=== PATIENT | female | born 1945 | race Caucasian/White ===

== ENCOUNTER 2019-12-09 15:42 | Emergency (ER) | payer MEDICARE ==
--- OUTSIDE RECORDS SUMMARY | 2019-12-09 18:35 | XMS REPORT | Summary of Care ---
:1945 Author Organization [facility] Address [address] [facility] [place] [address] Care Team Providers Name Role Phone Karthik Mathias MD Primary Care Provider Reason for Referral Refer to Department Only (Routine) Status Reason Specialty Diagnoses / Referred By Referred To Procedures Contact Contact Pending GASTROENTEROLOGY / Diagnoses Special screening for malignant neoplasm of colon History of colonic polyps Cristóbal Roa Review Gastroenterology Renetta Smith NP Gastroenterol [address] [place] [address] [id number] [facility] Phone: [address] [phone] [place], [place] Fax: [phone] Scheduling Instructions BP 118/78 | Pulse 72 | Temp 96.4 F (35.8 C) | Ht 5' 3" (1.6 m) | Wt 101 lb (45.8 kg) | BMI 17.89 kg/m BMI Readings from Last 4 Encounters: 10/11/19 : 17.89 kg/m Controlled Substance Medications: zolpidem Anticoagulant Medications: Psychiatric/Antianxiety Medications: Antiretroviral Medications: Reason for Visit Reason Comments Advice Only New pt. referred by her PCP for consult for 5-year colonoscopy. Encounter Details Date Type Department Care Team Description 10/11/2019 Office Visit Cristóbal Roa Special screening for malignant neoplasm of colon (Primary Dx); Gastroenterology/Hepa Renetta Smith NP History of colonic polyps tology [address] [place] [address] [place] [address] Allergies Active Allergy Reactions Severity Noted Date Comments Cat Other 03/22/2008 asthma No Known Allergies 10/10/2019 documented as of this encounter (statuses as of 10/11/2019) Medications Medication Sig Dispensed Refills Start End Date Status Date albuterol Take 2 Puff by 0 Active (PROVENTIL,VENTOLIN) inhalation 90 mcg/act FOUR TIMES Inhalation Aero Soln DAILY NEEDED zolpidem (AMBIEN) 10 Take 5-10 mg 0 Active MG Oral Tab by mouth EVERY BEDTIME NEEDED SUMATRIPTAN Take by mouth 0 Active SUCCINATE (IMITREX) DAILY 100 MG Oral Tab NEEDED Cholecalciferol 25 Take by 0 Active MCG (1000 UT) Oral mouth. Chew Tab clobetasol by Topical 0 Active (TEMOVATE) 0.05 % route TWICE Apply externally DAILY. Cream Ibuprofen 200 MG Take by 0 Active Oral Cap mouth. Magnesium 250 MG Take by 0 Active Oral Tab mouth. simethicone Take 1 Tab by 2 Tab 0 Active (GENASYME, MYLICON) mouth 0 80 MG Oral Chew Tab DIRECTED. triamcinolone Take 3 Puff by 0 10/11/19 Discontinued (AZMACORT) 75 inhalation 20 (Error) MCG/ACT Inhalation TWICE DAILY. Aero Soln ACTONEL 35 MG Oral Take 35 mg by 0 10/11/19 Discontinued Tab mouth EVERY 7 20 (Error) DAYS. VITAMIN K PO Take by 0 10/11/19 Discontinued mouth. 20 (Error) amitriptyline Take 10 mg by 0 10/11/19 Discontinued (ELAVIL, ENDEP) 10 mouth EVERY 20 (Error) MG Oral Tab BEDTIME. albuterol HFA Take 2 Puffs 0 10/11/19 Discontinued (PROAIR HFA) 108 (90 by inhalation. 20 (Error) Base) MCG/ACT Inhalation Aero Soln aspirin 325 MG Oral Take 325 mg by 0 10/11/19 Discontinued Tab mouth DAILY. 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 Insomnia 10/10/2019 Pemphigoid 10/10/2019 Osteoporosis, unspecified 08/30/2008 History of hepatitis C virus infection 03/22/2008 Melanoma 03/22/2008 Asthma 03/22/2008 documented as of this encounter (statuses as of 10/11/2019) Resolved Problems Problem Noted Date Resolved Date Palpitations 10/10/2019 10/11/2019 documented as of this encounter (statuses as of 10/11/2019) Social History Tobacco Use Types Packs/Day Years Used Date Former Smoker Smokeless Tobacco: Never Used Comments: quit 1972 Alcohol Use Drinks/Week oz/Week Comments No Sex Assigned at Date Recorded Not on file Job Start Date Occupation Industry Not on file Not on file Not on file Travel History Travel Start Travel End No recent travel history available. documented as of this encounter Last Filed Vital Signs Vital Sign Reading Time Taken Comments Blood Pressure 118/78 10/11/2019 10:27 AM EST Pulse 72 10/11/2019 10:27 AM EST Temperature 35.8 10/11/2019 10:27 AM EST C (96.4 F) Respiratory Rate - - Oxygen Saturation - - Inhaled Oxygen Concentration - - Weight 45.8 kg (101 lb) 10/11/2019 10:27 AM EST Height 160 cm (5' 3") 10/11/2019 10:27 AM EST Body Mass Index 17.89 10/11/2019 10:27 AM EST documented in this encounter Patient Instructions Patient InstructionsRenetta Roa NP - 10/11/2019 10:20 AM EST1. schedule colonoscopy here in [place]. Follow up as needed thereafter If you have not already been screened for Hepatitis C we would be happy to do that for you today. Currently we recommend screening for hepatitis C virus (HCV ) infection in persons at high risk for infection, and to adults born between 1945 and 1965. Thank you for choosing the [facility] for your needs today! -Renetta Roa NGinPGin , Please call if you need to cancel or change your appt. time. Thank you for choosing [facility] for your health care needs, and for consulting with [facility] today. You may receive a survey following this visit, or after an upcoming hospital stay. As easy as it is to feel overloaded with surveys, we are required to send them out randomly and they do provide important feedback so that we may serve your needs in the best way. Please do take the few minutes required to complete the survey if you receive one. We get them too, after seeing the doctor, and they only take a few minutes to complete. documented in this encounter Progress Notes Renetta Roa NP - 10/11/2019 10:20 AM EST PATIENT: Tamica Medina : 1945 DATE OF SERVICE: 10/11/2019 REFERRING PRACTITIONER: Self-Referred PRIMARY CARE PROVIDER: Karthik Mathias (Inactive) CHIEF COMPLAINT: Chief Complaint Patient presents with Advice Only New pt. referred by her PCP for consult for 5-year colonoscopy. Subjective HISTORY OF PRESENT ILLNESS: Tamica Medina is a 74-y.o. female who presents for a consultation. She reports the need for a screening colonoscopy. She reports a history of polyps, with last screening 5 years ago. Denies abdominal pain,heartburn, dysphagia, fatigue, nausea, vomiting, melena, hamatemesis, hematochezia, constipation, diarrhea, jaundice, fevers, chills, night sweats, weight loss, easy bruising, chest pain, shortness of breath, dysuria, hematuria, pyuria, joint pains, acholic stools, dark urine or systemic pruritis. The referring provider's recommended test(s) and treatment(s) to date have been reviewed. Past Medical History: Diagnosis Date Asthma Hepatitis C Melanoma (HCC) Past Surgical History: Procedure Laterality Date ADENOIDECTOMY 1961 APPENDECTOMY 1961 [place] BIOPSY OF BREAST, INCISIONAL right SKIN EXCISION FOR GRAFT 1994 left foot r/t melanoma Family History Problem Relation Age of Onset Heart Father Cancer Mother carcinoid tumors Current Outpatient Medications Medication Sig albuterol (PROVENTIL,VENTOLIN) 90 mcg/act Inhalation Aero Soln Take 2 Puff by inhalation FOURTIMES DAILY NEEDED Cholecalciferol 25 MCG (1000 UT) Oral Chew Tab Take by mouth. clobetasol (TEMOVATE) 0.05 % Apply externally Cream by Topical route TWICE DAILY. Ibuprofen 200 MG Oral Cap Take by mouth. Magnesium 250 MG Oral Tab Take by mouth. simethicone (GENASYME, MYLICON) 80 MG Oral Chew Tab Take 1 Tab by mouth DIRECTED. SUMATRIPTAN SUCCINATE (IMITREX) 100 MG Oral Tab Take by mouth DAILY NEEDED zolpidem (AMBIEN) 10 MG Oral Tab Take 5-10 mg by mouth EVERY BEDTIME NEEDED No current facility-administered medications for this visit. Allergies Allergen Reactions Cat Other asthma No Known Allergies Social History Socioeconomic History Marital status: Spouse name: Not on file Number of children: Not on file Years of education: Not on file Highest education level: Not on file Occupational History Not on file Social Needs Financial resource strain: Not on file Food insecurity Worry: Not on file Inability: Not on file Transportation needs Medical: Not on file Non-medical: Not on file Tobacco Use Smoking status: Former Smoker Smokeless tobacco: Never Used Tobacco comment: quit 1972 Substance and Sexual Activity Alcohol use: No Drug use: No Sexual activity: Yes Partners: Male Lifestyle Physical activity Days per week: Not on file Minutes per session: Not on file Stress: Not on file Relationships Social connections Talks on phone: Not on file Gets together: Not on file Attends lutheran service: Not on file Active member of club or organization: Not on file Attends meetings of clubs or organizations: Not on file Relationship status: Not on file Intimate partner violence Fear of current or ex partner: Not on file Emotionally abused: Not on file Physically abused: Not on file Forced sexual activity: Not on file Other Topics Concern Back Care Not Asked Bike Helmet Not Asked Blood Transfusions Not Asked Caffeine Concern Not Asked Exercise Yes Hobby Hazards Not Asked International Travel Yes Service Not Asked Occupational Exposure Not Asked Seat Belt Yes Self-Exams No Sleep Concern Not Asked Special Diet Not Asked Stress Concern Not Asked Weight Concern Not Asked Social History Narrative Not on file REVIEW OF SYSTEMS: All remaining review of systems was negative except for as noted in the history of present illness/subjective. Objective PHYSICAL EXAMINATION: VITALS: BP 118/78 | Pulse 72 | Temp 96.4 F (35.8 C) | Ht 5' 3" (1.6 m) | Wt 101 lb (45.8 kg) | BMI 17.89 kg/m Body mass index is 17.89 kg/m . GENERAL: alert, oriented, no acute distress. HEENT: No scleral icterus, MMM Psych: Affect normal Neck: no lymphadenopathy LUNGS: clear to auscultation bilaterally. HEART: regular rhythm, no murmurs, no gallops, no rubs. ABDOMEN: general exam: soft, non-tender, non-distended, without masses or organomegaly, normal active bowel sounds, Guzman's sign negative. Extrmities: no edema Skin: clear Neuro: gait normal, a&o x 3 RECTAL: exam deferred. IMPRESSION: ICD-9-CM ICD-10-CM 1. Special screening for malignant neoplasm of colon V76.51 Z12.11 REFER TO GI COLONOSCOPY 2. History of colonic polyps V12.72 Z86.010 REFER TO GI COLONOSCOPY Plan PLAN: Patient Instructions 1. schedule colonoscopy here in [place] 2. Follow up as needed thereafter If you have not already been screened for Hepatitis C we would be happy to do that for you today. Currently we recommend screening for hepatitis C virus (HCV ) infection in persons at high risk for infection, and to adults born between 1945 and 1965. Thank you for choosing the [facility] for your needs today! -Renetta Roa N.P. , Please call if you need to cancel or change your appt. time. Thank you for choosing [facility] for your health care needs, and for consulting with [facility] today. You may receive a survey following this visit, or after an upcoming hospital stay. As easy as it is to feel overloaded with surveys, we are required to send them out randomly and they do provide important feedback so that we may serve your needs in the best way. Please do take the few minutes required to complete the survey if you receive one. We get them too, after seeing the doctor, and they only take a few minutes to complete. Author: Renetta Roa NP 10/11/2019 10:52 documented in this encounter Plan of Treatment Date Type Specialty Care Team Description 10/16/2019 GI Procedure Gastroenterology Lisa Gordon MD [address] [place] [address] [phone] Name Type Priority Associated Diagnoses Order Schedule COLONOSCOPY Diagnostic/Surgical Routine Special screening for Ordered: Procedures malignant neoplasm of colon History of colonic polyps Name Type Priority Associated Diagnoses Order Schedule REFER TO GI Referral Routine Special screening for Expected: 10/11/2019, malignant neoplasm of colon Expires: 10/11/2020 History of colonic polyps Health Maintenance Due Date Last Done Comments MEDICARE ANNUAL WELLNESS VISIT 1945 DTaP/Tdap/Td Vaccines (1 - Tdap) 1958 DEPRESSION SCREENING 1959 HIV SCREENING 1962 LIPID DISORDER SCREENING 1965 MAMMOGRAM (SCREENING) 1987 Colonoscopy 1997 ZOSTER IMMUNIZATION SERIES (1 of 2) 1997 FALL RISK ASSESSMENT 2012 OSTEOPOROSIS SCREENING 2012 PNEUMOCOCCAL 65+YRS (1 of 2 - 2012 PCV13) INFLUENZA VACCINE (#1) 2019 HEPATITIS A IMMUNIZATION SERIES Aged Out No longer eligible based on patient's age to complete this topic HPV IMMUNIZATION SERIES Aged Out No longer eligible based on patient's age to complete this topic MENINGOCOCCAL VACCINE IMM Aged Out No longer eligible based on patient's age to complete this topic documented as of this encounter Results Not on filedocumented in this encounter Visit Diagnoses Diagnosis Special screening for malignant neoplasm of colon Special screening for malignant neoplasms, colon History of colonic polyps Personal history of colonic polyps documented in this encounter Insurance Payer Benefit Plan / Subscriber ID Effective Dates Phone Address Type Group [employer] MEDICARE EXCELL xxxxxxxxxxxx 2015-Present [employer] ADVANTAGE MEDICARE BLUE PPO [phone]) (Home) [place] [address] documented as of this encounter
[2019-12-09 18:52] VITALS: BP 75/52
[2019-12-09 19:15] LABS: Influenza A Molecular Negative (Negative); Influenza B Molecular Negative (Negative)
[2019-12-09] MEDS ORDERED: Albuterol/Ipratropium NEB.SOL* Albuterol 2.5 MG/Ipratropium 0.5 MG 3 ML INH ONE (19:19)
--- NOTE | 2019-12-09 19:30 | ED ---
Asthma - HPI Summary HPI Summary: 74 yo presents with acute asthma exacerbation characterized by increasing chest tightness with cough, hard to produce sputum with pleuritic chest pain 5 days associated with mild sputum. When she does bring up the cough she noticed 1 episode of yellowish sputum. Patient states she takes albuterol very intermittently for her asthma exacerbation recently symptoms have been worsening. Denies chills nausea vomiting diarrhea. - History of Current Complaint Chief Complaint: UCRespiratory Stated Complaint: FEVER/COUGH Time Seen by Provider: 12/09/19 18:39 Hx Obtained From: Patient Onset/Duration: Sudden Onset Timing: Constant Initial Severity: Moderate Pain Intensity: 0 - Allergy/Home Medications Allergies/Adverse Reactions: Allergies Allergy/AdvReac Type Severity Reaction Status Date / Time No Known Allergies Allergy Verified 12/09/19 18:53 Home Medications: Home Medications Amitriptyline TAB* [Elavil TAB*] 5 mg PO BEDTIME 10/08/14 [History Confirmed ] Zolpidem TAB* [Ambien*] 10 mg PO BEDTIME PRN 10/08/14 [History Confirmed ] Albuterol HFA INHALER* [Ventolin HFA Inhaler*] 2 puff INH Q4H PRN 12/09/19 [ History Confirmed 12/09/19] Azithromycin TAB* [Zithromax TAB (Z-RADHA) 250 mg #6 tabs] 2 tab PO .TODAY, THEN 1 DAILY #1 radha 12/09/19 [Rx] predniSONE 10 mg TAB [Deltasone 10 MG TAB*] 10 mg PO DAILY 5 Days #5 tab [Rx] PMH/Surg Hx/FS Hx/Imm Hx Previously Healthy: Yes Respiratory History: Reports: Hx Asthma Musculoskeletal History: Reports: Hx Osteoporosis - Cancer History Cancer Type, Location and Year: melanoma Hx Chemotherapy: No Hx Radiation Therapy: No - Surgical History Surgery Procedure, Year, and Place: appy, breast biopsy Infectious Disease History: Yes Infectious Disease History: Reports: Hx Hepatitis - C, cleared 5 years ago Denies: Traveled Outside the [place] in Last 30 Days - Family History Known Family History: Positive: Non-Contributory - Social History Lives: With Family Alcohol Use: None Substance Use Type: Reports: None Smoking Status (MU): Never Smoked Tobacco Review of Systems Positive: Fever, Fatigue Eyes: Negative ENT: Negative Cardiovascular: Negative Positive: Shortness Of Breath, Cough Gastrointestinal: Negative Genitourinary: Negative Musculoskeletal: Negative Skin: Negative Neurological/Mental Status: Negative All Other Systems Reviewed And Are Negative: Yes Physical Exam - Summary Physical Exam Summary: Vital Signs Reviewed: Yes Gen: NAD Eye Exam: Normal Eyes: Positive: Conjunctiva Clear ENT: Normal ENT inspection Neck: Supple Respiratory: Decreased breath sounds bilaterally without rhonchi/wheezes Cardiovascular Exam: Normal, RRR, S1, S2 Abdomen: NT/ND Musculoskeletal Exam: Normal Neurological Exam: Normal Psychological Exam: Normal Skin Exam: Normal Triage Information Reviewed: Yes Vital Signs On Initial Exam: Initial Vitals Temp Pulse Resp BP Pulse Ox 38.0 C 88 16 75/52 100 12/09/19 18:45 12/09/19 18:45 12/09/19 18:45 12/09/19 18:45 12/09/19 18:45 Diagnostics - Vital Signs Vital Signs Temp Pulse Resp BP Pulse Ox 12/09/19 18:45 38.0 C 88 16 75/52 100 - Laboratory Lab Results: Lab Results 12/09/19 12/09/19 Range/Units 18:59 19:03 Influenza A (Rapid) Negative (Negative) Influenza B (Rapid) Negative (Negative) Group A Strep Rapid Negative (Negative) Lab Statement: Any lab studies that have been ordered have been reviewed, and results considered in the medical decision making process. Asthma Course/Dx - Course Assessment/Plan: CXr - reveals mild peribronchial cuffing, will treat with empiric antibiotics and acutely asthmatic patient, prednisone 10 mg by mouth daily, Mucinex DM twice a day. 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
== END 2019-12-09 20:40 | disposition home or self-care (01) ==
LOC: UCEAST 15:42
DX: J45.901 Unspecified asthma with (acute) exacerbation (principal); Z79.899 Other long term (current) drug therapy; Z79.52 Long term (current) use of systemic steroids; R53.83 Other fatigue
CPT/HCPCS: 71046; 87651; 99212; A9270-GY; G0463